=== PATIENT | male | born 1970 | race Two or more races ===

== ENCOUNTER → 2019-05-25 | Outpatient (CLI) | payer OTHER | END | disposition home or self-care (01) | LOC: RAD 10:46 | DX: I11.9 Hypertensive heart disease without heart failure (principal) ==

== ENCOUNTER 2024-02-28 08:02 | Outpatient (CLI) | payer OTHER | END 2024-02-28 08:09 | disposition home or self-care (01) | LOC: SONOGRAMA 08:02 | DX: K76.0 Fatty (change of) liver, not elsewhere classified (principal) ==